=== PATIENT | female | born 2000 | race African-American/Black ===

== ENCOUNTER 2021-03-05 15:41 | Outpatient (CLI) | payer OTHER ==
--- NOTE | 2021-03-05 16:46 | XRAY Report ---
PROCEDURE: Hips 3-4V BILAT (study is an AP pelvis and frog-leg lateral view of the right hip) INDICATIONS: HIP JOINT PAIN, RIGHT TECHNIQUE: An AP view of the pelvis including 2 views of the hip were acquired. COMPARISON: None FINDINGS: Bones: No fractures or dislocations. No suspicious bony lesions. The visualized pelvic ring appear s intact. Soft tissues: No suspicious soft tissue calcifications or masses. IUD. Medial to the right femoral shaft is a small amount of heterotopic bone formation in the medial proximal 5 muscles. IMPRESSION: 1. Unremarkable appearance of pelvis and right hip. 2. Focal mild heterotopic bone medial upper thigh soft tissues is consistent with soft tissue remote injury. Reviewed by: Spencer Marie MD on 03/05/2021 4:44 PM PDT Approved by: Spencer Marie MD on 03/05/2021 4:44 PM PDT Station ID: [id number]
== END 2021-03-05 23:59 | disposition home or self-care (01) ==
LOC: DI.N 15:41
PROVIDERS: ATTEND Family Medicine
DX: M25.551 Pain in right hip (principal); M79.9 Soft tissue disorder, unspecified

== ENCOUNTER 2023-12-04 16:19 | Emergency (ER) | payer OTHER ==
[2023-12-04 16:53] LABS: BASOPHILS % (AUTO) 0.3 %; EOSINOPHILS % (AUTO) 0.1 %; HCT - HEMATOCRIT 39.3 % (37.0-47.0); LYMPHOCYTES # (AUTO) 1.9 10^3/uL (1.5-3.5); LYMPHOCYTES % (AUTO) 15.7 %; MEAN CORPUSCULAR HEMOGLOBIN 29.7 pg (27.0-31.0); MEAN CORPUSCULAR HGB CONC 33.1 g/dL (32.0-36.0); MEAN CORPUSCULAR VOLUME 89.7 fL (81.0-99.0); MEAN PLATELET VOLUME 8.8 fL (7.9-10.8); MONOCYTES # (AUTO) 0.7 10^3/uL (0.0-1.0); MONOCYTES % (AUTO) 5.9 %; NEUTROPHILS # (AUTO) 9.5 10^3/uL (1.5-6.6); NEUTROPHILS % (AUTO) 77.8 %; PLT - PLATELET COUNT 257 10^3/uL (130-450); RED BLOOD COUNT 4.38 10^6/uL (4.20-5.40); RED CELL DISTRIBUTION WIDTH 11.5 % (12.0-15.0); WHITE BLOOD COUNT 12.3 x10^3/uL (4.8-10.8)
[2023-12-04] MEDS: ONDANSETRON 4 MG/2 ML VIAL IVP STA (16:58)
[2023-12-04] MEDS: SODIUM CHLORIDE 0.9% 1,000 ML IV STA (16:58)
[2023-12-04 17:04] LABS: BILIRUBIN,URINE NEGATIVE (NEGATIVE); GLUCOSE, URINE (UA) NEGATIVE (NEGATIVE); KETONES,URINE (UA) NEGATIVE (NEGATIVE); LEUKOCYTE ESTERASE, URINE NEGATIVE (NEGATIVE); NITRITE,URINE NEGATIVE (NEGATIVE); OCCULT BLOOD,URINE NEGATIVE (NEGATIVE); PROTEIN,URINE 30 mg/dL (NEGATIVE); UROBILINOGEN,URINE 0.2 (NORMAL) E.U./dL (NORMAL)
--- NOTE | 2023-12-04 17:09 | ED Physician Documentation ---
History of Present Illness - Stated complaint Stated Complaint: DIZZY,N/V, POST OP - Chief complaint Chief Complaint: Abd Pain - History obtained from History obtained from: Patient - History of Present Illness Pain level max: 0 Pain level now: 0 - Additonal information Additional information: Patient is a 23-year-old female who presents to the emergency department stating that about 4 to 5 days ago she stopped taking her sertraline that she has been on for several years. She stopped it abruptly for wisdom tooth extraction. She states that she has been feeling lightheaded, dizzy and nauseated. She took her usual dose of sertraline this morning at around 11. Had emesis x 2 1 PM and 3 PM. No fevers. No chills. No urinary symptoms. No abdominal pain or chest pain. Nothing makes it better or worse. Patient is not , breast- feeding or trying to become . Review of Systems Constitutional: denies: Fever, Chills Respiratory: denies: Cough GI: reports: Nausea, Vomiting. denies: Diarrhea, Hematemesis, Bloody / black s tool : denies: Dysuria, Frequency, Hesitancy, Now EGA Skin: denies: Rash Musculoskeletal: denies: Neck pain, Back pain Neurologic: denies: Headache PD PAST MEDICAL HISTORY - Past Medical History Past Medical History: No - Past Surgical History Past Surgical History: Yes - Present Medications Home Medications: Ambulatory Orders Medication Instructions Recorded Confirmed Ondansetron Odt [Zofran] 4 mg TL Q6H PRN #10 tablet 12/04/23 Sertraline HCl 100 mg PO DAILY 12/04/23 12/04/23 - Allergies Allergies/Adverse Reactions: Allergies Allergy/AdvReac Type Severity Reaction Status Date / Time No Known Drug Allergies Allergy Verified 12/04/23 16:27 - Social History Does the pt smoke?: No Smoking Status: Never smoker Does the pt drink ETOH?: Yes Does the pt have substance abuse?: No - Immunizations Immunizations are current?: Yes PD ED PE NORMAL - Vitals Vital signs reviewed: Yes - General General: Alert and oriented X 3, No acute distress - HEENT HEENT: PERRL, Moist mucous membranes, Pharynx benign, Other (No evidence of intraoral infection, no bleeding) - Neck Neck: Supple, no meningeal sign - Cardiac Cardiac: RRR, Strong equal pulses - Respiratory Respiratory: No respiratory distress, Clear bilaterally - Abdomen Abdomen: Soft, Non tender, Non distended - Back Back: No CVA TTP, No spinal TTP - Derm Derm: Warm and dry - Extremities Extremities: No edema - Neuro Neuro: Alert and oriented X 3, 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 Normal gait. Normal cerebellar test) Eye Opening: Spontaneous Motor: Obeys Commands Verbal: Oriented GCS Score: 15 - Psych Psych: Normal mood, Normal affect Results - Vitals Vitals: Vital Signs - 24 hr 12/04/23 12/04/23 12/04/23 16:25 18:16 19:13 Temperature 36.7 C Heart Rate 83 66 70 Respiratory 16 18 18 Rate Blood Pressure 137/78 H 115/69 106/64 O2 Saturation 99 96 98 Oxygen O2 Source Room air - Labs Labs: Laboratory Tests 12/04/23 12/04/23 12/04/23 16:48 16:48 16:55 WBC 12.3 H RBC 4.38 Hgb 13.0 Hct 39.3 MCV 89.7 MCH 29.7 MCHC 33.1 RDW 11.5 L Plt Count 257 MPV 8.8 Neut # (Auto) 9.5 H Lymph # (Auto) 1.9 [place] # (Auto) 0.7 Eos # (Auto) 0.0 Baso # (Auto) 0.0 Absolute Nucleated RBC 0.00 Nucleated RBC % 0.0 Sodium 135 Potassium 5.0 H Chloride 104 Carbon Dioxide 24 Anion Gap 7.0 BUN 21 H Creatinine 0.9 Estimated GFR (MDRD) 78 L Glucose 95 Calcium 9.5 Total Bilirubin 1.0 AST 54 H ALT 27 Alkaline Phosphatase 33 L Total Protein 7.5 Albumin 4.7 Globulin 2.8 Albumin/Globulin Ratio 1.7 Lipase 15 Urine Color YELLOW Urine Clarity CLEAR Urine pH 6.0 Ur Specific [place] >=1.030 H Urine Protein 30 H Urine Glucose (UA) NEGATIVE Urine Ketones NEGATIVE Urine Occult Blood NEGATIVE Urine Nitrite NEGATIVE Urine Bilirubin NEGATIVE Urine Urobilinogen 0.2 (NORMAL) Ur Leukocyte Esterase NEGATIVE Urine RBC None Seen Urine WBC 0-3 Ur Squamous Epith Cells MANY Squamous H Urine Bacteria None Seen Ur Microscopic Review INDICATED Urine Culture Comments NOT INDICATED Urine HCG, Qual NEGATIVE PD Medical Decision Making - ED course Complexity details: reviewed results, re-evaluated patient, considered differential, d/w patient ED course: Patient was given IV fluids, Zofran and droperidol. Dizziness resolved, nausea and vomiting resolved. Likely that she has some withdrawal from her sertraline. Recommend that she restart this. She is well-appearing, nontoxic. Afebrile. Ambulating with normal steady gait. No focal neurological deficits. Normal cerebellar testing. Patient counseled regarding signs and symptoms for which I believe and urgent re-evaluation would be necessary. Patient with good understanding of and agreement to plan and is comfortable going home at this time This document was made in part using voice recognition software. While efforts are made to proofread this document, sound alike and grammatical errors may occur. Departure - Departure Disposition: 01 Home, Self Care Clinical Impression: Vomiting Qualifiers: Vomiting type: unspecified Nausea presence: with nausea Qualified Code(s): R11.2 - Nausea with vomiting, unspecified Medication withdrawal Qualifiers: Substance type: other psychoactive substance Qualified Code(s): F19.939 - Other psychoactive substance use, unspecified with withdrawal, unspecified Condition: Good Instructions: ED Nausea Vomiting Follow-Up: your,doctor in 3 days if not better [Other] Prescriptions: Ondansetron Odt [Zofran] 4 mg TL Q6H PRN #10 tablet PRN Reason: Nausea / Vomiting Comments: Your prescriptions were sent to his pharmacy. Please take your Zoloft as prescribed. Your symptoms should improve as your Zoloft levels increased back into your system. Please drink plenty of fluids and return if you worsen. Forms: PCP List, Activity restrictions Discharge Date/Time: 12/04/23 19:13
[2023-12-04 17:11] LABS: ALBUMIN 4.7 g/dL (3.2-5.5); ALBUMIN/GLOBULIN RATIO 1.7 (1.0-2.2); CALCIUM 9.5 mg/dL (8.5-10.3); CREATININE 0.9 mg/dL (0.6-1.3); TOTAL PROTEIN 7.5 g/dL (6.4-8.9)
[2023-12-04 17:13] LABS: CLARITY,URINE CLEAR (CLEAR); HCG UR QUAL NEGATIVE
[2023-12-04 17:14] LABS: BACTERIA,URINE None Seen /HPF (None Seen); RBC,URINE None Seen /HPF (0-5); SQUAMOUS EPITHELIAL CELL,UR MANY Squamous (<= Few); WBC,URINE 0-3 /HPF (0-5)
[2023-12-04] MEDS: DROPERIDOL 5 MG/2 ML VIAL IVP STA (17:57)
[2023-12-04 19:22] VITALS: BP 106/64; O2SAT 98
== END 2023-12-04 19:13 | disposition home or self-care (01) ==
LOC: ED 16:19
DX: F19.939 Other psychoactive substance use, unspecified with withdrawal, unspecified (principal); R11.2 Nausea with vomiting, unspecified
CPT/HCPCS: 36415; 80053; 81001; 81003; 81025; 83690; 85025; 87086; 96374; 96375; 99283

== ENCOUNTER 2024-04-28 18:46 | Emergency (ER) | payer OTHER ==
[2024-04-28 18:53] VITALS: O2SAT 99
[2024-04-28 21:23] VITALS: BP 117/76
--- NOTE | 2024-04-28 21:51 | ED Physician Documentation ---
History of Present Illness - Stated complaint Stated Complaint: MOUTH PX - Chief complaint Chief Complaint: Heent - Additonal information Additional information: Patient is a 23-year-old female presenting to the emergency department with mout h sores to mandibular lip. Patient's symptoms have been intermittent for the past few months. She notes they will go away and then return. She has tried Ambien [id number] and Chapstick but no relief of her symptoms. She has not seen anyone else for these problems. She notes burning sensation no open wounds no lesions to the mucosal membranes. He denies any fevers chills headaches. PD PAST MEDICAL HISTORY - Past Medical History Past Medical History: Yes Psych: Depression, Anxiety - Past Surgical History Past Surgical History: Yes - Present Medications Home Medications: Ambulatory Orders Medication Instructions Recorded Confirmed buPROPion HCL [Bupropion Xl] 150 mg PO DAILY 04/28/24 04/28/24 - Allergies Allergies/Adverse Reactions: Allergies Allergy/AdvReac Type Severity Reaction Status Date / Time No Known Drug Allergies Allergy Verified 04/28/24 18:49 - Social History Does the pt smoke?: No Smoking Status: Never smoker Does the pt drink ETOH?: Yes Does the pt have substance abuse?: No - Immunizations Immunizations are current?: Yes - POLST Patient has POLST: No PD ED PE NORMAL - Vitals Vital signs reviewed: Yes - General General: Alert and oriented X 3 - HEENT HEENT: Other (Mandibular lips show lesions to lateral lip with no active bleeding mild scabbing over of lesions. No discharge tenderness on examination.No mucosal lesions.) - Cardiac Cardiac: RRR, No murmur, No gallop, No rub - Respiratory Respiratory: No respiratory distress, Clear bilaterally - Abdomen Abdomen: Normal bowel sounds - Derm Derm: Normal color, No rash - Neuro Neuro: Alert and oriented X 3 Eye Opening: Spontaneous Motor: Obeys Commands Verbal: Oriented GCS Score: 15 Results - Vitals Vitals: Vital Signs - 24 hr 04/28/24 04/28/24 04/28/24 18:49 21:13 22:49 Temperature 36.8 C 36.9 C Heart Rate 78 75 72 Respiratory 16 16 16 Rate Blood Pressure 130/80 117/76 O2 Saturation 99 99 99 Oxygen O2 Source Room air PD Medical Decision Making - ED course Complexity details: re-evaluated patient ED course: Patient is a 23-year-old female presents to the emergency department with recurrent lip lesions. She notes symptoms come and go and have been going on for weeks. She has tried Ambien and Chapstick for symptoms with no significant relief. She denies any fevers chills no mucosal lesions no blistering no other rash on upper or lower extremities. She denies no new medications and does not take anything else at home. Vital stable on arrival. Lesions noted to left mandibular region with scabbing over no signs of crusting or discharge from the wounds. Clear oropharynx otherwise. 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 Patient started on it prophylactically will call her on results in outpatient setting. Patient will follow-up with her PCP to ensure resolution of symptoms. Departure - Departure Disposition: 01 Home, Self Care Clinical Impression: Recurrent cold sores Condition: Good Comments: You were seen here in the emergency department for recurrent cold sores. In majority of population cold sores secondary to a virus called herpes simplex virus. I will cover you with antiviral. I have tested you here in the emergency department for this test in the meantime I will start you on antiviral treatment for these symtpoms. Please return with any worsening symptoms please follow-up with your PCP for labs for this can occasionally hurt your kidneys when taking this antiviral medication please take as prescribed return to the emergency department with any new or worsening symptoms. Forms: PCP List Discharge Date/Time: 04/28/24 22:50
[2024-04-28] MEDS: valACYclovir 500 MG TABLET PO ONE (22:39)
== END 2024-04-28 22:50 | disposition home or self-care (01) ==
LOC: ED 18:46
DX: B00.1 Herpesviral vesicular dermatitis (principal)
CPT/HCPCS: 99283; A9270; 87529